=== PATIENT | female | born 1965 | race Caucasian/White ===

== ENCOUNTER 2017-01-19 09:37 | Day surgery (SDC) | payer OTHER ==
[~2017-01-19] VITALS: Ht 170.2 cm; Wt 81.1 kg
[~2017-01-19 09:37] MED LIST: ASPIRIN 32325 MG/TAB PO; ASPIRIN E.C. 8181 MG PO; CHANTIX 1MG1 MG PO; FLONASE NASAL S16 GM NS; HEALTH CARE AMERI50% TP; LEVOXYL0.1 MG PO; LEVOXYL0.112 MG PO; LIPITOR20 MG PO; PAXIL 10MG10 MG PO; PLAVIX 75MG TAB75 MG PO; PROCTOFOAM-HC F10 G1 RC; SINGULAIR 110 MG/TAB PO; SUDAFED30 MG PO; TOPROL XL 25MG25 MG PO; ZESTRIL2.5 MG PO; ZYRTEC 10MG10 MG PO; [UNRECOGNIZED DRUG - OTHER]
[2017-01-19 10:28] VITALS: BP 123/71; PULSE 67; TEMP 97.6
[2017-01-19] MEDS ORDERED: SYNTHROID0.112 MG/T PO (10:38)
[2017-01-19] MEDS ORDERED: FIORICET 325 MG1 TA1 PO (10:40)
[2017-01-19] MEDS ORDERED: ASPIRIN E.C. 8181 MG PO (10:41)
[2017-01-19] MEDS ORDERED: SINGULAIR 110 MG/TAB PO (10:41)
[2017-01-19] MEDS ORDERED: ZYRTEC 10MG10 MG PO (10:42)
[2017-01-19] MEDS ORDERED: CETAPHIL TOP (10:43)
[2017-01-19] MEDS ORDERED: FLONASE NASAL S16 GM NS (10:45)
[2017-01-19] MEDS ORDERED: SYNTHROID0.1 MG/TAB PO (10:45)
[2017-01-19] MEDS ORDERED: TUMS500 MG PO (10:46)
[2017-01-19] MEDS ORDERED: ADVIL200 MG PO (10:46)
[2017-01-19] MEDS ORDERED: COCONUT OIL 1 ML1 ML TOP (10:46)
[2017-01-19] MEDS ORDERED: CALCIUM 600MG+D1 TAB PO (10:47)
[2017-01-19] MEDS ORDERED: PROBIOTIC FORMU1 CAP PO (10:47)
[2017-01-19 12:03] VITALS: BP 124/78; PULSE 69; TEMP 97.7
[2017-01-19 12:15] VITALS: BP 111/70; PULSE 67
[2017-01-19 12:30] VITALS: BP 131/97; PULSE 71
[2017-01-19 13:05] VITALS: BP 96/58; PULSE 67
== END 2017-01-19 12:47 | disposition home or self-care (01) ==
LOC: SDCO 09:37
DX: K21.0 Gastro-esophageal reflux disease with esophagitis (principal); K59.00 Constipation, unspecified; K22.2 Esophageal obstruction; R13.12 Dysphagia, oropharyngeal phase; Z79.899 Other long term (current) drug therapy; I10 Essential (primary) hypertension; E03.9 Hypothyroidism, unspecified; K21.9 Gastro-esophageal reflux disease without esophagitis
CPT/HCPCS: C1726; J2250; J3010; J7030

== ENCOUNTER → 2020-07-26 | Outpatient (CLI) | payer OTHER ==
[~2020-07-26] MED LIST changes: +ADVIL200 MG PO; +CALCIUM 600MG+D1 TAB PO; +CETAPHIL TOP; +COCONUT OIL 1 ML1 ML TOP; +FIORICET 325 MG1 TA1 PO; +PROBIOTIC FORMU1 CAP PO; +SYNTHROID0.1 MG/TAB PO; +SYNTHROID0.112 MG/T PO; +TUMS500 MG PO
== END | disposition still patient (30) ==
LOC: COL.LAB 06-29 08:00
DX: U07.1 COVID-19 (principal)